=== PATIENT | female | born 1960 | race Native Hawaiian/Other Pacific Islander ===

== ENCOUNTER 2016-08-21 10:43 | Outpatient (CLI) | payer OTHER ==
[2016-08-21 11:20] LABS: PLATELET COUNT 298 K/uL (152-353)
[2016-08-21 11:47] LABS: POTASSIUM 2.9 mmol/L (3.6-5.2); SODIUM 133 mmol/L (136-145)
== END 2016-08-21 19:50 | disposition home or self-care (01) ==
LOC: LABW 10:43
PROVIDERS: Internal Medicine
DX: E87.6 Hypokalemia (principal); I10 Essential (primary) hypertension
CPT/HCPCS: 36415; 80048; 82040; 84100; 84550; 85027

== ENCOUNTER 2016-09-25 12:32 | Outpatient (CLI) | payer OTHER ==
[2016-09-25 12:48] LABS: PLATELET COUNT 314 K/uL (152-353)
[2016-09-25 13:05] LABS: SODIUM 132 mmol/L (136-145)
== END 2016-09-25 20:29 | disposition home or self-care (01) ==
LOC: LABW 12:32
PROVIDERS: Internal Medicine
DX: Z79.899 Other long term (current) drug therapy (principal); R35.8 Other polyuria; Z51.81 Encounter for therapeutic drug level monitoring; E87.6 Hypokalemia
CPT/HCPCS: 36415; 80048; 82040; 83735; 84100; 84550; 85027

== ENCOUNTER 2016-11-12 13:34 | Outpatient (CLI) | payer OTHER ==
[2016-11-12 14:00] LABS: POTASSIUM 3.6 mmol/L (3.6-5.2); SODIUM 133 mmol/L (136-145)
== END 2016-11-12 19:29 | disposition home or self-care (01) ==
LOC: LABW 13:34
PROVIDERS: Nurse Practitioner Adult Health
DX: Z79.899 Other long term (current) drug therapy (principal); E87.6 Hypokalemia; Z51.81 Encounter for therapeutic drug level monitoring
CPT/HCPCS: 36415; 80048

== ENCOUNTER 2017-08-29 09:32 | Outpatient (CLI) | payer OTHER ==
[2017-08-29 10:00] LABS: PLATELET COUNT 274 K/uL (152-353)
[2017-08-29 10:32] LABS: POTASSIUM 3.5 mmol/L (3.6-5.2); SODIUM 136 mmol/L (136-145)
== END 2017-08-29 22:01 | disposition home or self-care (01) ==
LOC: LABW 09:32
PROVIDERS: Internal Medicine Cardiovascular Disease
DX: Z79.899 Other long term (current) drug therapy (principal); Z51.81 Encounter for therapeutic drug level monitoring
CPT/HCPCS: 36415; 80053; 80061; 85027

== ENCOUNTER 2018-03-26 10:28 | Outpatient (CLI) | payer OTHER | END 2018-03-26 22:18 | disposition home or self-care (01) | LOC: CT 10:28 | DX: R31.0 Gross hematuria (principal) ==

== ENCOUNTER 2019-01-01 09:56 | Outpatient (CLI) | payer OTHER | END 2019-01-01 19:13 | disposition home or self-care (01) | LOC: US 09:56 | DX: I65.29 Occlusion and stenosis of unspecified carotid artery (principal) ==

== ENCOUNTER 2022-03-05 13:58 | Outpatient (CLI) | payer OTHER | END 2022-03-05 18:51 | disposition home or self-care (01) | LOC: RAD 13:58 | PROVIDERS: ATTEND Physician Assistant | DX: M25.562 Pain in left knee (principal) ==

== ENCOUNTER 2022-05-31 13:45 | Outpatient (CLI) | payer OTHER | END 2022-05-31 22:09 | disposition home or self-care (01) | LOC: MAMMO 13:45 | PROVIDERS: ATTEND Physician Assistant | DX: Z12.31 Encounter for screening mammogram for malignant neoplasm of breast (principal) ==

== ENCOUNTER 2022-07-20 13:39 | Outpatient (CLI) | payer OTHER | END 2022-07-20 19:22 | disposition home or self-care (01) | LOC: RAD 13:39 | PROVIDERS: ATTEND Physician Assistant | DX: M54.89 Other dorsalgia (principal); M54.2 Cervicalgia; M19.90 Unspecified osteoarthritis, unspecified site ==

== ENCOUNTER 2022-10-26 13:53 | Outpatient (CLI) | payer OTHER | END 2022-10-26 19:35 | disposition home or self-care (01) | LOC: MRI 13:53 | PROVIDERS: ATTEND Physical Medicine & Rehabilitation Pain Medicine | DX: M96.1 Postlaminectomy syndrome, not elsewhere classified (principal) ==

== ENCOUNTER 2022-10-30 14:36 | Outpatient (CLI) | payer OTHER | END 2022-10-30 19:29 | disposition home or self-care (01) | LOC: MRI 14:36 | PROVIDERS: ATTEND Physical Medicine & Rehabilitation Pain Medicine | DX: M96.1 Postlaminectomy syndrome, not elsewhere classified (principal) | CPT/HCPCS: 36415; 82565; 84520; A9576 ==

== ENCOUNTER 2022-10-31 12:56 | Outpatient (CLI) | payer OTHER | END 2022-10-31 19:42 | disposition home or self-care (01) | LOC: MRI 12:56 | PROVIDERS: ATTEND Physical Medicine & Rehabilitation Pain Medicine | DX: M96.1 Postlaminectomy syndrome, not elsewhere classified (principal) | CPT/HCPCS: A9576 ==

== ENCOUNTER 2022-11-09 21:45 | Emergency (ER) | payer OTHER ==
[~2022-11-09] VITALS: Ht 157.5 cm; Wt 102.1 kg
[2022-11-09 21:50] VITALS: TEMP 98
[2022-11-09 22:39] LABS: PLATELET COUNT 458 K/uL (152-353)
[2022-11-09 22:47] LABS: POTASSIUM 3.3 mmol/L (3.6-5.2)
[2022-11-10 01:40] VITALS: BP 177/88
== END 2022-11-10 01:40 | disposition home or self-care (01) ==
LOC: ED 21:45
PROVIDERS: Family Medicine
DX: T78.49XA Other allergy, initial encounter (principal); L50.0 Allergic urticaria; N39.0 Urinary tract infection, site not specified; Z98.890 Other specified postprocedural states; X58.XXXA Exposure to other specified factors, initial encounter; Y92.89 Other specified places as the place of occurrence of the external cause
CPT/HCPCS: 36415; 80053; 81000; 85027; 87086; 87088; 96372; 99283; J1200; J2930